=== PATIENT | male | born 1965 | race Caucasian/White ===

== ENCOUNTER → 2017-06-09 | Outpatient (CLI) | payer BC ==
[~2017-06-09] MED LIST: CALC500C70 PO; CHOL100010 PO; CIPR-255 PO; DOCU-94 PO; MULT-506 PO; SUMA25TA12 PO; VITA400C28 PO
--- NOTE | 2017-06-09 11:41 | DIAGNOSTIC IMAGING REPORT ---
[facility]UB CLINICAL HISTORY: N20.0 [id number] COMPARISON STUDY: 05/17/2016 FINDINGS: There is no pathologic bowel dilatation. There are no calcifications suspicious for urinary tract calculi. The previously identified distal right ureteral calculus is no longer visualized. IMPRESSION: No urinary tract calculi are visualized on conventional radiographic imaging Electronically signed by: Nuno Yates M.D. 06/09/2017 11:40 AM Dictated Date/Time: 06/09/2017 11:38 AM
== END | disposition home or self-care (01) ==
LOC: C.RAD 10:33
PROVIDERS: ATTEND Urology
DX: N20.0 Calculus of kidney (principal)